=== PATIENT | male | born 1970 | race Caucasian/White ===

== ENCOUNTER → 2018-10-29 17:38 | Outpatient (CLI) | payer OTHER, SELFPAY ==
--- NOTE | 2018-10-29 | DI.MRI.S_ITS ---
PROCEDURE: MR SHOULDER LT WO CON INDICATIONS: Anterior left shoulder pain TECHNIQUE: Noncontrast oblique coronal T2 fast spin echo with fat saturation, oblique sagittal T1 spin echo and T2 fast spin echo with fat saturation, axial T1 spin echo and T2 fast spin echo with fat saturation through the shoulder. COMPARISON: None. FINDINGS: Image quality: Excellent. Rotator cuff: There is a small focal interstitial tear within the distal infraspinatus at its insertion involving the anterior fibers. No high-grade or full-thickness tear. There is minimal peritendinous edema anterior to the myotendinous junction of the supraspinatus which appears intact. The subscapularis and teres minor also appear intact. Sagittal images demonstrate no fatty muscle atrophy. Bones and bursae: No bone marrow contusions or fractures. There is moderate acromioclavicular joint degeneration with joint space narrowing, subchondral sclerosis, and capsular hypertrophy. The acromion demonstrates conventional anatomy, without an os acromiale. Trace subacromial-subdeltoid bursal fluid is present. Capsule and soft tissues: In the absence of intra-articular contrast, the labrum and glenohumeral ligaments appear intact. There is an anterosuperior sublabral foramen with an adjacent small fluid collection likely representing a loculated joint recess. The long head of the biceps tendon demonstrates normal location and morphology. The rotator interval appears normal, without fibrosis. The coracohumeral ligament is normal in thickness. IMPRESSION: 1. Small focal interstitial tear in the distal infraspinatus at its insertion. 2. Minimal peritendinous edema anterior to the myotendinous junction of the supraspinatus which appears intact. Moderate acromioclavicular joint degeneration with trace subacromial/subdeltoid bursal fluid is also demonstrated. The constellation of findings may be associated with impingement in the appropriate clinical context. Dictated by: Vargas Galvez M.D. on 10/30/2018 at 14:00 Approved by: Vargas Galvez M.D. on 10/30/2018 at 14:08
== END ==
PROVIDERS: Visit Provider Student in an Organized Health Care Education/Training Program
DX: M25.512 Pain in left shoulder (principal); R60.0 Localized edema
CPT/HCPCS: 73221